=== PATIENT | male | born 1995 | race African-American/Black ===

== ENCOUNTER 2022-03-26 15:13 | Emergency (ER) | payer OTHER ==
[~2022-03-26] VITALS: Ht 180.3 cm; Wt 77.1 kg
[2022-03-26 15:19] VITALS: BP 135/84; TEMP 97.8
[2022-03-26] MEDS ORDERED: MEDROL DOSEPAK4 MG PO (16:09)
== END 2022-03-26 16:30 | disposition home or self-care (01) ==
LOC: ED 15:13
DX: T63.481A Toxic effect of venom of other arthropod, accidental (unintentional), initial encounter (principal); R22.31 Localized swelling, mass and lump, right upper limb; X58.XXXA Exposure to other specified factors, initial encounter; Y92.89 Other specified places as the place of occurrence of the external cause
CPT/HCPCS: 96372; 99283; J2930